=== PATIENT | female | born 1990 | race Caucasian/White ===

== ENCOUNTER 2021-06-12 17:06 | Emergency (ER) | payer BC ==
[2021-06-12] MEDS: Lactated Ringers 1,000 ML IV ONE (18:49)
[2021-06-12] MEDS: Sodium Chloride 0.9% 10 ML Syringe FLUSH PRN (18:50)
[2021-06-12] MEDS: Ondansetron 4 MG/2 ML SDV IVPUSH ONE (18:50)
[2021-06-12 19:47] LABS: CORONAVIRUS COVID-19 NAA NEGATIVE (NEGATIVE)
== END 2021-06-12 20:36 | disposition home or self-care (01) ==
LOC: JP.ED 17:06
DX: K52.9 Noninfective gastroenteritis and colitis, unspecified (principal); J45.909 Unspecified asthma, uncomplicated; Z88.5 Allergy status to narcotic agent; Z20.822 Contact with and (suspected) exposure to COVID-19
CPT/HCPCS: 0241U; 36415; 80053; 81001; 83605; 83690; 85025; 87086; 96374; 99284; J2405; J7120